=== PATIENT | female | born 1970 | race Caucasian/White ===

== ENCOUNTER 2018-06-26 15:00 | Emergency (ER) | payer OTHER ==
[~2018-06-26] VITALS: Ht 162.6 cm; Wt 60.0 kg
[2018-06-26] MEDS ORDERED: LOSA25TA16 PO (15:06)
[2018-06-26 16:09] VITALS: BP 130/78
== END 2018-06-26 16:12 | disposition home or self-care (01) ==
LOC: EMS 15:07
DX: I10 Essential (primary) hypertension (principal); Z76.0 Encounter for issue of repeat prescription